=== PATIENT | female | born 2005 | race Asian ===

== ENCOUNTER 2023-02-04 14:25 | Outpatient (CLI) | payer BC | END 2023-02-04 14:26 | disposition home or self-care (01) | LOC: ULT 14:25 → BICULT 14:26 | PROVIDERS: ATTEND Nurse Practitioner | DX: R10.2 Pelvic and perineal pain (principal); N85.4 Malposition of uterus; N83.201 Unspecified ovarian cyst, right side | CPT/HCPCS: 76856 ==